=== PATIENT | female | born 1935 | race Caucasian/White ===

== ENCOUNTER 2017-02-06 18:25 | Outpatient (CLI) | payer MEDICARE, OTHER ==
--- NOTE | 2017-02-06 20:55 | RAD ---
TWO VIEWS CHEST: Date: 02-06-17 Comparison: 02-27-12 History: Cough. FINDINGS: There is no pneumothorax. There is subtle hazy density in the right costophrenic angle, new, with mi ld blunting of the right costophrenic angle on the frontal and the lateral imaging. The cardiac silh ouette appears enlarged, a stable finding. IMPRESSION: New focal opacity in the right lung base intra laterally suggests right pleural effusion and/or righ t lower lobe infectious pneumonitis/aspiration. Follow up imaging following treatment advised. POS: [facility]
== END 2017-02-06 18:26 | disposition home or self-care (01) ==
LOC: NAV RAD 18:25
PROVIDERS: ATTEND Allergy & Immunology
DX: R00.0 Tachycardia, unspecified (principal)
CPT/HCPCS: 71020

== ENCOUNTER 2017-02-06 21:01 | Emergency (ER) | payer MEDICARE, OTHER ==
[2017-02-06] MEDS ORDERED: Metoprolol Tartrate 5 MG/5 ML VIAL ONE (21:45)
[2017-02-06 22:02] LABS: ALT (SGPT) 63 U/L (8-55); AST (SGOT) 26 U/L (5-34); Albumin 3.8 g/dL (3.4-4.8); Alkaline Phosphatase 74 U/L (40-150); Anion Gap 15 mmol/L (10-20); BUN (Urea Nitrogen) 16 mg/dL (9.8-20.1); Bilirubin, Total 0.5 mg/dL (0.2-1.2); Calc. Creatinine Clearance 0 mL/min (70-130); Calcium 8.6 mg/dL (7.8-10.44); Carbon Dioxide 27 mmol/L (23-31); Chloride 96 mmol/L (98-107); Estimated GFR-MDRD 73; Globulin 0.8 g/dL (2.4-3.5); Glucose 217 mg/dL (83-110); Potassium 3.6 mmol/L (3.5-5.1); Protein, Total 4.6 g/dL (6.0-8.3); Sodium 134 mmol/L (136-145)
[2017-02-06 22:05] LABS: CKMB 2.3 ng/mL (0-6.6); Troponin I 0.038 ng/mL (< 0.028)
[2017-02-06] MEDS ORDERED: Sodium Chloride 0.9% 500 ML ONE (22:10)
[2017-02-06 22:20] LABS: #Basophils 0.1 thou/uL (0.0-0.2); #Eosinphils 0.1 thou/uL (0.0-0.7); #Lymphocytes 0.7 thou/uL (1.20-3.40); #Monocytes 1.1 thou/uL (0.11-0.59); #Neutrophils 7.3 thou/uL (1.40-6.50); %Basophils 1.1 % (0.0-1.0); %Eosinophils 0.9 % (0.0-10.0); %Lymphocytes 7.7 % (21.0-51.0); %Monocytes 11.4 % (0.0-10.0); Differential Comment SCANNED; Hemoglobin 11.2 g/dL (12.0-16.0); Mean Corpuscular HGB CONC 32.8 g/dL (32.0-36.0); Mean Corpuscular Hemoglobin 32.3 pg (27.0-31.0); Mean Corpuscular Volume 98.6 fl (81.0-99.0); Mean Platelet Volume 7.8 fL (7.4-10.4); Platelet Count 134 thou/uL (130-400); RBC Distribution Width 14.4 % (11.5-14.5); Red Blood Cell (RBC) Count 3.48 mill/uL (4.20-5.40); White Blood Cell (WBC) Count 9.2 thou/uL (4.8-10.8)
[2017-02-06] MEDS ORDERED: cefTRIAXone\\ROCEPHIN 1 GM VIAL ONE ×2 (22:28→22:58)
[2017-02-06] MEDS ORDERED: Sodium Chloride 0.9% 100 ML ONE ×2 (22:28→22:58)
[2017-02-06] MEDS ORDERED: Sodium Chloride 0.9% 250 ML 250 ML ONE ×2 (23:06)
[2017-02-06] MEDS ORDERED: Azithromycin 500 MG VIAL ONE (23:06)
[2017-02-06 23:33] LABS: Bilirubin Negative (Negative); Blood, Urine Trace (Negative); Clarity Clear (Clear); Glucose, Urine (Dipstick) Negative (Negative); Leukocyte Trace (Negative); Nitrite Positive (Negative); Protein, Urine (Dipstick) Negative (Neg-Trace); Specific Gravity, Urine 1.015 (1.005-1.030); Squamous Epithelial 0-3 HPF (0-3); Urobilinogen 0.2 mg/dL (0.2-1.0)
[2017-02-06 23:34] LABS: Bacteria/HPF 4+ HPF (None Seen)
[2017-02-06 23:41] LABS: Amphetamine Not Detected (NotDetected); Barbiturates Screen Not Detected (NotDetected); Benzodiazepine Screen Not Detected (NotDetected); Cocaine Metabolite Screen Not Detected (NotDetected); Medtox Control Line Valid? VALID (VALID); Methadone Not Detected (NotDetected); Methamphetamine Not Detected (NotDetected); Opiate Screen Not Detected (NotDetected); Oxycodone Screen Not Detected (NotDetected); Phencyclidine (PCP) Not Detected (NotDetected); THC/Cannabinoid Screen Not Detected (NotDetected); Tricyclic Screen Not Detected (NotDetected)
== END 2017-02-06 23:30 | disposition short-term general hospital (02) ==
LOC: NAV ERS 21:01
DX: J18.9 Pneumonia, unspecified organism (principal); I10 Essential (primary) hypertension; K21.9 Gastro-esophageal reflux disease without esophagitis; E78.5 Hyperlipidemia, unspecified
CPT/HCPCS: 36415; 71020; 80053; 80306; 81003; 81015; 82553; 83605; 83735; 83880; 84443; 84484; 85025; 87040; 87086; 96365; 96366; 96375; J0456; J0696; J7050

== ENCOUNTER 2017-10-05 10:09 | Outpatient (CLI) | payer MEDICARE, OTHER ==
--- NOTE | 2017-10-05 12:07 | RAD ---
PA AND LATERAL VIEWS CHEST: HISTORY: Shortness of breath, atrial fibrillation. FINDINGS: Comparison is made with the exam of 02/15/17. The heart size is enlarged. There are small bilateral pleural effusions. No lobar consolidation or radha pulmonary edema is identified. There are degenerative changes in the spine. There is a patchy opacity in the right lung base. POS: [facility]
== END 2017-10-05 10:10 | disposition home or self-care (01) ==
LOC: NAV RAD 10:09
PROVIDERS: ATTEND Family Medicine
DX: I48.2 Chronic atrial fibrillation (principal); R09.02 Hypoxemia; R53.81 Other malaise; J90 Pleural effusion, not elsewhere classified
CPT/HCPCS: 71046

== ENCOUNTER 2018-01-25 11:43 | Outpatient (CLI) | payer MEDICARE, OTHER ==
--- NOTE | 2018-01-25 13:16 | RAD ---
LEFT RIBS THREE VIEWS: HISTORY: Pain. FINDINGS: No fracture. No cortical irregularity. No periosteal reaction. There appear to be pleural and pare nchymal changes in the right hemithorax. These changes are new since the previous examination. Dedi cated two view chest radiograph is recommended. There are chronic changes involving the left glenohu meral joint space. IMPRESSION: 1. No fracture. 2. Pleural and parenchymal changes in the right hemithorax, incompletely evaluated. Dedicated two v iew chest radiograph is recommended. CODE T POS: [facility]
== END 2018-01-25 11:44 | disposition home or self-care (01) ==
LOC: NAV RAD 11:43
PROVIDERS: ATTEND Family Medicine
DX: R07.81 Pleurodynia (principal)

== ENCOUNTER 2018-01-26 13:01 | Outpatient (CLI) | payer MEDICARE, OTHER ==
--- NOTE | 2018-01-26 14:49 | RAD ---
RADIOGRAPH CHEST 2 VIEWS: Date: 01/26/18 Time: 1303 HOURS HISTORY: 82-year-old female with left-sided chest pain, and abnormality of right lung found on rib series. COMPARISON: 01/25/18 rib series and 10/05/17 chest radiograph. FINDINGS: There is dense opacification of the right lower lobe and right middle lobe, completely silhouetting t he right hemidiaphragm and right heart border. There is no interval change since 01/25/18. This right lung base is significantly worse compared to 10/05/17. There is no pleural effusion on the left side . Subsegmental atelectasis in the right suprahilar upper lobe. Otherwise, no air space density or jhonny ma in the bilateral upper lobes. No pneumothorax. IMPRESSION: Opacification of much of the right lower lobe and right middle lobe. This may be a combination of rig ht pleural effusion and underlying atelectasis or pneumonia. GISSELLE [] POS: [facility]
== END 2018-01-26 13:02 | disposition home or self-care (01) ==
LOC: NAV RAD 13:01
PROVIDERS: ATTEND Family Medicine
DX: R07.81 Pleurodynia (principal); R91.8 Other nonspecific abnormal finding of lung field
CPT/HCPCS: 71046

== ENCOUNTER 2018-04-23 14:51 | Emergency (ER) | payer MEDICARE, OTHER ==
[~2018-04-23 14:51] MED LIST: Iopamidol 370 76% 100 ML VIAL ONE
[2018-04-23] MEDS ORDERED: Sodium Chloride 0.9% 1,000 ML ONE ×2 (15:55→17:36)
[2018-04-23 16:02] LABS: ALT (SGPT) 65 U/L (8-55); AST (SGOT) 38 U/L (5-34); Albumin 3.8 g/dL (3.4-4.8); Alkaline Phosphatase 65 U/L (40-150); Anion Gap 14 mmol/L (10-20); BUN (Urea Nitrogen) 46 mg/dL (9.8-20.1); Bilirubin, Total 0.7 mg/dL (0.2-1.2); Calc. Creatinine Clearance 0 mL/min (70-130); Calcium 9.2 mg/dL (7.8-10.44); Carbon Dioxide 37 mmol/L (23-31); Chloride 95 mmol/L (98-107); Estimated GFR-MDRD 56; Glucose 121 mg/dL (83-110); Magnesium 1.9 mg/dL (1.6-2.6); Potassium 3.7 mmol/L (3.5-5.1); Protein, Total 5.8 g/dL (6.0-8.3); Sodium 142 mmol/L (136-145)
[2018-04-23 16:10] LABS: #Lymphocytes 0.9 thou/uL (1.20-3.40); #Monocytes 0.5 thou/uL (0.11-0.59); #Neutrophils 5.8 thou/uL (1.40-6.50); %Basophils 0.6 % (0.0-1.0); %Eosinophils 0.5 % (0.0-10.0); %Lymphocytes 12.2 % (21.0-51.0); %Neutrophils 79.6 % (42.0-75.0); Hemoglobin 12.8 g/dL (12.0-16.0); Mean Corpuscular HGB CONC 31.2 g/dL (32.0-36.0); Mean Platelet Volume 10.8 fL (7.4-10.4); Platelet Count 111 thou/uL (130-400); RBC Distribution Width 15.1 % (11.5-14.5); Red Blood Cell (RBC) Count 3.88 mill/uL (4.20-5.40); White Blood Cell (WBC) Count 7.2 thou/uL (4.8-10.8)
[2018-04-23 16:11] LABS: Troponin I 0.031 ng/mL (< 0.028)
[2018-04-23 16:29] LABS: Bilirubin Negative (Negative); Blood, Urine Trace (Negative); Clarity Clear (Clear); Glucose, Urine (Dipstick) Negative (Negative); Leukocyte Trace (Negative); Nitrite Positive (Negative); Protein, Urine (Dipstick) 30 mg/dL (Neg-Trace)
[2018-04-23 16:45] LABS: Bacteria/HPF 3+ HPF (None Seen); RBC/HPF 0-3 HPF (0-3); WBC/HPF 0-3 HPF (0-3)
[2018-04-23 16:53] LABS: MDiff Complete? YES; Macrocytosis SLIGHT = 6-15 cells (100X) (0-5/hpf); PLT Morphology Comment Appears Decreased
[2018-04-23] MEDS ORDERED: Sodium Chloride 0.9% 250 ML 0 ML ONE (17:23)
[2018-04-23] MEDS ORDERED: Sodium Chloride 0.9% 250 ML 250 ML ONE (17:23)
--- NOTE | 2018-04-23 17:39 | RAD ---
CHEST ONE VIEW: HISTORY: Chest pain. COMPARISON: 01/26/2018 FINDINGS: Portable semiupright chest demonstrates pleural and parenchymal changes in the right hemithorax, whic h have progressed. Stable aeration of the left lung. Atherosclerosis of the aorta. Obscuration of the right heart border due to aforementioned pleural and parenchymal changes. No pneumothorax or acu te osseous abnormalities. IMPRESSION: Pleural and parenchymal changes, predominantly in the right hemithorax, as above. POS: [facility]
[2018-04-23] MEDS ORDERED: Piperacillin/Tazobactam 3.375 GM VIAL ONE (18:45)
--- NOTE | 2018-04-23 19:11 | CT ---
CT ANGIOGRAM CHEST: HISTORY: Evaluate for pulmonary artery embolism. Evaluate for pleural effusion. COMPARISON: None. TECHNIQUE: A CT angiogram of the chest is performed in the axial plane, and 3-dimensional reformatted images are submitted for interpretation. FINDINGS: No mediastinal mass, lymphadenopathy, or hematoma. Heart size is upper normal. No significant peric ardial fluid. The visualized aorta demonstrates atherosclerosis but cannot be further assessed due t o timing of bolus. There is reflux of contrast into the inferior vena cava and hepatic base, suggest ing right heart failure. There is a hypodensity in the right hepatic lobe, measuring 2 cm in maximum dimension, with an attenuation coefficient of 17 Hounsfield units. Characterization is incomplete. The visualized upper solid organs are unremarkable. There is a complex, loculated, right-sided pleural effusion, moderate in size. There is consolidatio n of the middle lobe and lower lobe, likely due to atelectasis. Pneumonia cannot be completely exclu ded. There is adequate contrast opacification of the pulmonary arterial system, to the level of the segmen martir arteries, in the left lung. No evidence of pulmonary artery embolism to the level of the left se gmental arteries. Limited evaluation of the right pulmonary arterial system due to motion and consol idation of the lung parenchyma. No evidence of filling defect to the level of the lobar arteries. IMPRESSION: 1. Limited evaluation. No evidence of pulmonary artery embolism to the lobar arteries in the right lung. No evidence of pulmonary artery embolism to the level of the segmental arteries in the left dena ng. 2. Loculated complex pleural fluid in the right hemithorax. Opacification of the right lung parench yma, likely due to atelectasis or pneumonia. POS: [facility]
== END 2018-04-23 19:27 | disposition short-term general hospital (02) ==
LOC: NAV ERS 14:51
DX: J90 Pleural effusion, not elsewhere classified (principal); R09.02 Hypoxemia; N39.0 Urinary tract infection, site not specified; R79.89 Other specified abnormal findings of blood chemistry; K21.9 Gastro-esophageal reflux disease without esophagitis; E78.5 Hyperlipidemia, unspecified; I10 Essential (primary) hypertension; Z79.899 Other long term (current) drug therapy
CPT/HCPCS: 36415; 51701; 71045; 71275; 80053; 81003; 81015; 82553; 83605; 83735; 84484; 85025; 85379; 87040; 87077; 87086; 87186; 93005; 94760; 96361; 96365; 96367; A4353; J2543; J3370; J7050

== ENCOUNTER 2018-05-17 18:51 | Emergency (ER) | payer MEDICARE, OTHER ==
[~2018-05-17 18:51] MED LIST changes: +Atropine Sulfate 1 mg/10 ml Syringe ONE; -Iopamidol 370 76% 100 ML VIAL ONE
[2018-05-17] MEDS ORDERED: Fentanyl 100 MCG/2 ML VIAL ONE (19:04)
[2018-05-17] MEDS ORDERED: Midazolam HCl 2 mg/2 ml Vial ONE (19:12)
[2018-05-17 19:43] LABS: ALT (SGPT) 171 U/L (8-55); AST (SGOT) 145 U/L (5-34); Albumin 3.3 g/dL (3.4-4.8); Alkaline Phosphatase 68 U/L (40-150); Anion Gap 16 mmol/L (10-20); BUN (Urea Nitrogen) 53 mg/dL (9.8-20.1); Bilirubin, Total 0.4 mg/dL (0.2-1.2); CK (CPK) 34 U/L (29-168); Calc. Creatinine Clearance 0 mL/min (70-130); Calcium 8.7 mg/dL (7.8-10.44); Carbon Dioxide 25 mmol/L (23-31); Chloride 101 mmol/L (98-107); Estimated GFR-MDRD 27; Globulin 2.2 g/dL (2.4-3.5); Glucose 123 mg/dL (83-110); Potassium 5.3 mmol/L (3.5-5.1); Protein, Total 5.5 g/dL (6.0-8.3); Sodium 137 mmol/L (136-145)
[2018-05-17 19:50] LABS: CKMB 2.1 ng/mL (0-6.6)
[2018-05-17 19:51] LABS: Troponin I 0.073 ng/mL (< 0.028)
[2018-05-17 19:58] LABS: #Basophils 0.1 thou/uL (0.0-0.2); #Eosinphils 0.1 thou/uL (0.0-0.7); #Lymphocytes 0.7 thou/uL (1.20-3.40); #Monocytes 0.5 thou/uL (0.11-0.59); #Neutrophils 4.1 thou/uL (1.40-6.50); %Basophils 1.6 % (0.0-1.0); %Eosinophils 1.1 % (0.0-10.0); %Lymphocytes 13.1 % (21.0-51.0); %Monocytes 8.4 % (0.0-10.0); %Neutrophils 75.9 % (42.0-75.0); Hemoglobin 9.7 g/dL (12.0-16.0); Mean Corpuscular HGB CONC 31.1 g/dL (32.0-36.0); Mean Corpuscular Hemoglobin 32.8 pg (27.0-31.0); Mean Platelet Volume 10.5 fL (7.4-10.4); Platelet Count 111 thou/uL (130-400); RBC Distribution Width 15.6 % (11.5-14.5); Red Blood Cell (RBC) Count 2.95 mill/uL (4.20-5.40); White Blood Cell (WBC) Count 5.3 thou/uL (4.8-10.8)
[2018-05-17 20:45] LABS: Anisocytosis SLIGHT = 6-15 cells (100X) (0-5/hpf); MDiff Complete? YES; Macrocytosis SLIGHT = 6-15 cells (100X) (0-5/hpf); PLT Morphology Comment Appears Decreased
== END 2018-05-17 20:13 | disposition short-term general hospital (02) ==
LOC: NAV ERS 18:51
DX: R00.1 Bradycardia, unspecified (principal); K21.9 Gastro-esophageal reflux disease without esophagitis; E78.5 Hyperlipidemia, unspecified; I10 Essential (primary) hypertension; Z79.899 Other long term (current) drug therapy
CPT/HCPCS: 80053; 82550; 82553; 83605; 84484; 85025; 93005; 94760; 96374; 96375; J0461; J2250; J3010